=== PATIENT | female | born 1990 | race Caucasian/White ===

== ENCOUNTER 2017-01-30 19:37 | Emergency (ER) | payer MEDICAID ==
--- NOTE | 2017-01-30 20:06 | ED Physician Chart ---
Chief Complaint/HPI - Patient Information Date Seen:: 01/30/17 Time Seen:: 19:55 Chief Complaint:: right forearm pain History of Present Illness:: Patient was grooming a dog for 4 hours 2 days ago using repetitive combing action with her right hand after which she developed pain of the radial dorsal distal right forearm. Patient is right-hand dominant Historian:: Patient Review:: Nurse's Note Reviewed Review of Systems - Review of Systems General/Constitutional: No fever, No chills Skin: No skin lesions Head: No headache Eyes: No loss of vision ENT: No earache Neck: No neck pain, No swelling Cardio Vascular: No chest pain Pulmonary: No SOB GI: No nausea, No vomiting Musculoskeletal: Bone or joint pain Endocrine: No polyuria, No polydipsia Psychiatric: No prior psych history Hematopoietic: Bruising Allergic/Immuno: No urticaria Neurological: No syncope, No focal symptoms Past Medical History - Past Medical History Past Medical History: No significant medical hx Family History: None Social History: Non Smoker, No Alcohol Surgical History: other (for right thumb dislocation) Psychiatricy History: None Medication: None Family Medical History - Family Member Mother Hx Family Hypertension: Yes Physical Exam - Physical Examination General/Constitutional: Well-developed, well-nourished, Alert, No distress Head: Atraumatic Eyes: Lids, conjuctiva normal, PERRL Skin: Nl inspection, No rash, No skin lesions, No ecchymosis ENMT: External ears, nose nl Neck: No nuchal rigidity Respiratory: Nl effort/Exclusion, Clear to Auscultation Cardio Vascular: RRR GI: No tenderness/rebounding/guarding : No CVA tenderness Other Extremities comments:: Right forearm: Tenderness of distal radial dorsum; especially tender is 1 cm ill -defined subcutaneous mass; motor and sensory of radial, median and ulnar nerves intact right hand Labs/Radiology/EKG Results - Radiology Results Results: right forearm negataive Assessment - Assessment General Assessment: velcrose splint applied right wrist ED Septic Shock - . Is Septic Shock (SBP<90, OR Lactate>4 mmol\L) present?: No Reassessment (Disposition) - Reassessment Reassessment Condition:: Unchanged - Diagnosis Diagnosis:: right forearm strain - Aftercare/Follow up Instructions Aftercare/Follow-Up Instructions:: Refer to Discharge Instructions Medication Prescribed:: [place] 10/325 #12 to take 1/2-1 4 times a day as necessary for pain - Patient Disposition Discharge/Transfer:: Home Condition at Disposition:: Stable, Unchanged
--- NOTE | 2017-01-31 11:28 | Diagnostic Imaging Report ---
Right forearm (2 views) HISTORY: Pain, trauma No acute bony abnormalities. No fractures. IMPRESSION: No acute abnormalities
== END 2017-01-30 21:00 | disposition home or self-care (01) ==
LOC: ER 19:37
DX: S56.911A Strain of unspecified muscles, fascia and tendons at forearm level, right arm, initial encounter (principal); X58.XXXA Exposure to other specified factors, initial encounter; Y93.89 Activity, other specified; Y92.89 Other specified places as the place of occurrence of the external cause; Y99.8 Other external cause status
CPT/HCPCS: 73090-TC-RT; 81025-TC